=== PATIENT | female | born 2000 | race Caucasian/White ===

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

== ENCOUNTER 2018-05-24 | Emergency (ER) | payer BC | END 2018-05-24 13:12 | disposition home or self-care (01) ==

== ENCOUNTER 2018-08-21 17:39 | Emergency (ER) | payer BC ==
--- NOTE | 2018-08-21 19:12 | EDPHY ---
H & P Stated Complaint: cp/subjective fever bloody sputum Time Seen by Provider: 08/21/18 18:56 HPI/ROS: CHIEF COMPLAINT: Cough times 5 days HISTORY OF PRESENT ILLNESS: 18-year-old immunocompetent female complaining of 5 days of URI symptoms, intermittently productive cough with streaks of bloody appearance. No dyspnea. Concerned about pneumonia. No chest pain. No back pain. No syncope no near syncope. No headache. No fever or chills. No urinary abnormality. No nuchal rigidity. PRIMARY CARE PROVIDER:Yasmine [facility] REVIEW OF SYSTEMS: 10 systems reviewed and negative with the exception of the elements mentioned in the history of present illness PAST MEDICAL & SURGICAL HISTORY: no chronic respiratory illness SOCIAL HISTORY: Nonsmoker. Student. PHYSICAL EXAM (Prior to examination, patient consented to physical exam, hands were washed and my usual and customary physical exam procedures followed) 1) GENERAL: Well-developed, well-nourished, alert and oriented. Appears to be in no acute distress. Speaking full sentences. Appears comfortable. Appears nontoxic 2) HEAD: Normocephalic, atraumatic 3) HEENT: Pupils equal, round, reactive to light bilaterally. Sclera anicteric. Nasopharynx, oropharynx, clear, no lesions. Moist Mucous membranes. No Tonsillar enlargement or exudate Ears bilaterally with normal tympanic membranes. No signs of otitis media otitis externa 4) NECK: Full range of motion, no meningeal signs. 5) LUNGS: Clear auscultation bilaterally, no wheezes, no rhonchi, no retractions. 6) HEART: Regular rate and rhythm, no murmur, no heave, no gallop. 7) ABDOMEN: No guarding, no rebound, no focal tenderness, negative McBurney's, negative Myrick's, negative Rovsing's, negative peritoneal sign, 8) MUSCULOSKELETAL: Moving all extremities, no focal areas of tenderness, no obvious trauma. No peripheral edema or discoloration. Negative Homans no palpable cord 9) BACK: No CVA tenderness, no midline vertebral tenderness, no fluctuance, no step-off, no obvious trauma, no visual or palpable abnormality. 10) SKIN: No rash, no petechiae. 11) Psychiatric: Patient is oriented X 3, there is no agitation. DIFFERENTIAL DIAGNOSIS: In no particular order including but not limited to viral pathology, bronchitis, pneumonia, pulmonary embolus - Personal History LMP (Females 10-55): 8-14 Days Ago Current Tetanus Diphtheria and Acellular Pertussis (TDAP): Yes - Medical/Surgical History Hx Asthma: No Hx Chronic Respiratory Disease: No Hx Diabetes: No Hx Cardiac Disease: No Hx Renal Disease: No Hx Cirrhosis: No Hx Alcoholism: No Hx HIV/AIDS: No Hx Splenectomy or Spleen Trauma: No Other PMH: chronic migraines, ovarian cysts anxiety - Social History Smoking Status: Never smoked Constitutional: Initial Vital Signs Temperature (C) 36.9 C 08/21/18 18:01 Heart Rate 99 08/21/18 18:01 Respiratory Rate 18 08/21/18 18:01 Blood Pressure 100/71 08/21/18 18:01 O2 Sat (%) 95 08/21/18 18:01 O2 Delivery Mode Room Air Allergies/Adverse Reactions: Penicillins Allergy (Verified 08/21/18 18:00) Home Medications: Medication Instructions Recorded Amitriptyline HCl 12/25/17 Clonidine 12/25/17 Lexapro 12/25/17 Vistaril 12/25/17 traMADol 12/25/17 Hydroxyzine Pamoate 05/24/18 Methylprednisolone 05/24/18 Phenergan 25mg (*) 05/24/18 Spironolactone 05/24/18 Albuterol [Proventil Inhaler HFA 1 - 2 puffs IH Q4PRN PRN #1 mdi 08/21/18 (*)] Benzonatate [Tessalon Pearles (RX)] 200 mg PO TID PRN #15 cap 08/21/18 Medical Decision Making - Diagnostics Imaging Results: Imaging Impressions Chest X-Ray 08/21/18 19:12 Impression: Normal chest. Images reviewed myself ED Course/Re-evaluation: Re-evaluation with serial exams, maintain normal saturations, lungs clear bilaterally. Reviewed with the patient her chest x-ray. Low pretest suspicion for pulmonary embolus, Negative perc score. I think the patient's symptoms are more than likely viral in origin. I Think that meningitis less than likely in this patient. I do not think antibiotics indicated at this time. Have prescribed her antitussive and albuterol for supportive care.. I do not think that hospitalization or further diagnostic studies are indicated at this time. She has been given my usual and customary precautions instructions and feels comfortable being discharged. All questions and concerns addressed by myself. Care of patient under supervision of secondary supervising physician Dr Read . Departure - Departure Disposition: Home, Routine, Self-Care Clinical Impression: Upper respiratory infection Qualifiers: URI type: unspecified URI Qualified Code(s): J06.9 - Acute upper respiratory infection, unspecified Condition: Good Instructions: Upper Respiratory Infection (ED) Additional Instructions: . Return to the emergency department immediately for change in breathing habits , change in voice, change in swallowing habits, change in mental status, or any other symptoms that concern you. Referrals: [facility],. [Clinic] - 2-3 days, call for appt. Prescriptions: Albuterol [Proventil Inhaler HFA (*)] 1 - 2 puffs IH Q4PRN PRN #1 mdi PRN Reason: Cough, Moderate Benzonatate [Tessalon Pearles (RX)] 200 mg PO TID PRN #15 cap PRN Reason: Cough, Moderate
[2018-08-21 20:49] VITALS: BP 112/87
--- NOTE | 2018-08-22 09:23 | CPEKG ---
Test Reason : OPEN Blood Pressure : / mmHG Vent. Rate : 088 BPM Atrial Rate : 088 BPM P-R Int : 157 ms QRS Dur : 095 ms QT Int : 369 ms P-R-T Axes : 076 074 014 degrees QTc Int : 447 ms Sinus rhythm Minimal ST depression, inferior leads Confirmed by Anna Read ([id number]) on 08/22/2018 9:23:21 AM Referred By: Confirmed By:Anna Read
== END 2018-08-21 20:49 | disposition home or self-care (01) ==
DX: J06.9 Acute upper respiratory infection, unspecified (principal); G43.909 Migraine, unspecified, not intractable, without status migrainosus